=== PATIENT | male | born 1950 | race Caucasian/White ===

== ENCOUNTER → 2017-05-14 | Outpatient (CLI) | payer OTHER | LOC: BRMIMAGING 09:57 | PROVIDERS: ATTEND Registered Nurse | DX: M50.323 Other cervical disc degeneration at C6-C7 level (principal); M43.12 Spondylolisthesis, cervical region; M47.892 Other spondylosis, cervical region; M89.38 Hypertrophy of bone, other site | CPT/HCPCS: 72040-PO ==

== ENCOUNTER → 2019-02-02 | Outpatient (CLI) | payer OTHER | LOC: BRMIMAGING 08:19 | PROVIDERS: ATTEND Registered Nurse | DX: Z13.820 Encounter for screening for osteoporosis (principal); M81.0 Age-related osteoporosis without current pathological fracture; M48.44XA Fatigue fracture of vertebra, thoracic region, initial encounter for fracture ==